=== PATIENT | male | born 1955 | race Caucasian/White ===

== ENCOUNTER 2023-01-11 09:45 | Outpatient (CLI) | payer MEDICARE, OTHER, SELFPAY ==
--- NOTE | 2023-01-11 08:45 | DI.RAD_ITS ---
Exam(s) XR PELVIS AP EXAM: XR PELVIS AP CLINICAL HISTORY: hip pain. TECHNIQUE: 2D digital imaging was performed. COMPARISON: No exams were available for comparison FINDINGS: Single view. No evidence of pelvic nor hip fracture. There are advanced osteoarthritic degenerative changes in th e right hip and milder degenerative changes in the left hip. Right hip exhibits [id number] narrowi ng of the superior aspect of the joint, subarticular degenerative cysts and small osteophytes. Also some dystrophic calcification in the soft tissues above and below the hip joint. IMPRESSION: Advanced osteoarthritic degenerative changes in the right hip. DATA REPOSITORY: RADIATION DOSE DELIVERED:
== END 2023-01-11 09:46 | disposition home or self-care (01) ==
LOC: DIORS 09:46
PROVIDERS: PCP Family Medicine; Referring Provider Family Medicine; Visit Provider Student in an Organized Health Care Education/Training Program
DX: M25.559 Pain in unspecified hip (principal); M16.11 Unilateral primary osteoarthritis, right hip
CPT/HCPCS: 99203; 72170

== ENCOUNTER → 2023-02-04 13:37 | Outpatient (BNVA) | payer MEDICARE, OTHER, SELFPAY | PROVIDERS: PCP Family Medicine; Referring Provider Family Medicine ==

== ENCOUNTER 2023-02-04 15:01 | Outpatient (CLI) | payer MEDICARE, OTHER, SELFPAY ==
[2023-02-04 19:04] LABS: HCT 45.2 % (40.0-50.0); HGB 14.7 g/dL (13.5-17.5); MCH 30.3 pg (27.0-33.0); MCHC 32.5 % (32.0-36.0); MCV 93 fL (80-95); RBC 4.85 10^6/uL (4.36-5.78); RDW 15.1 % (11.8-14.1); RDW-SD 52.3 fL; WBC 8.18 10^3/uL (4.4-10.8)
== END 2023-02-04 15:02 | disposition home or self-care (01) ==
LOC: LBO 15:02
PROVIDERS: PCP Family Medicine; Visit Provider Student in an Organized Health Care Education/Training Program
DX: M16.11 Unilateral primary osteoarthritis, right hip (principal); M25.551 Pain in right hip; Z01.818 Encounter for other preprocedural examination; Z01.812 Encounter for preprocedural laboratory examination
CPT/HCPCS: 85027

== ENCOUNTER → 2023-02-09 07:55 | Outpatient (BNVA) | payer MEDICARE, OTHER, SELFPAY | PROVIDERS: PCP Family Medicine; Referring Provider Family Medicine; Visit Provider Student in an Organized Health Care Education/Training Program ==

== ENCOUNTER 2023-02-10 08:04 | Day surgery (SDC) | payer MEDICARE, OTHER, SELFPAY ==
[2023-02-10] VITALS (10 sets, daily range): BP systolic 81–142; BP diastolic 43–81; PULSE 69–81; RESP 14–20; TEMP 36.1–36.5; O2SAT 92–99; BMI 30.7
--- NOTE | 2023-02-10 07:16 | ANES.PREOP_ITS ---
General Info Date of Service Date Performed: 02/10/23 Height: 5 ft 6 in Weight: 86.183 kg Body Mass Index (BMI): 30.7 Surgical Procedure: Operation Date: 02/10/23 10:50 Proposed Procedure Side Surgeon p Hip Total Hip Anterior, ACTIS Right Edilberto Bee MD Meds Allergies and Home Medications Allergies Allergy/AdvReac Type Severity Reaction Status Date / Time atorvastatin Allergy Verified 02/10/23 08:34 Tree and Grass Pollens Allergy Uncoded 02/10/23 08:34 Home Medication Medication Instructions Recorded brimonidine 0.2 % eye drops 1 drp ophthalmic (eye) BID 12/02/22 diphenhydramine HCl 25 mg capsule 25 mg PO QHS PRN 12/02/22 (Benadryl) dorzolamide 22.3 mg-timolol 6.8 1 drp ophthalmic (eye) BID 12/02/22 mg/mL eye drops dulaglutide 3 mg/0.5 mL 3 mg subcut QWEEK 12/02/22 subcutaneous pen injector (Trulicity) empagliflozin 25 mg tablet 25 mg PO DAILY 12/02/22 (Jardiance) gabapentin 800 mg tablet 800 mg PO Q6H 12/02/22 insulin degludec 200 unit/mL (3 60 unit subcut DAILY 12/02/22 mL) subcutaneous pen (Tresiba FlexTouch U-200 insulin) latanoprost 0.005 % eye drops 1 drp ophthalmic (eye) DAILY 12/02/22 losartan 25 mg tablet 25 mg PO DAILY 12/02/22 tadalafil 20 mg tablet 20 mg PO DAILY PRN 12/02/22 timolol maleate 0.25 % eye drops 1 drp ophthalmic (eye) BID 12/02/22 metformin 1,000 mg tablet 1,000 mg PO BID 12/22/22 acetaminophen 500 mg tablet 1,000 mg PO TID #90 tabs 02/10/23 aspirin 81 mg tablet,delayed 81 mg PO BID #60 tabs 02/10/23 release celecoxib 200 mg capsule 200 mg PO BID #60 caps 02/10/23 dexamethasone 4 mg tablet 4 mg PO DAILY #2 tabs 02/10/23 oxycodone 5 mg tablet 5 mg PO Q4H PRN pain #20 tabs 02/10/23 pantoprazole 40 mg tablet,delayed 40 mg PO DAILY #30 tabs 02/10/23 release Current Visit Medications: Current Medications Generic Name Dose Route Start Last Admin Trade Name Frekymberly PRN Reason Stop Dose Admin Acetaminophen 1,000 mg 02/10/23 06:00 Acetaminophen 500 Mg Tab PO 02/10/23 16:00 PREOP MEME Celecoxib 400 mg 02/10/23 06:00 Celecoxib 200 Mg Cap PO 02/10/23 16:00 PREOP MEME Tranexamic Acid 1,000 mg/ 60 mls @ 360 mls/hr 02/10/23 06:00 Sodium Chloride IV 02/10/23 16:00 PREOP MEME Ringer's Solution 1,000 mls @ 80 mls/hr 02/10/23 06:00 IV 03/11/23 23:59 INFUSION [facility] IV Miscellaneous Supplies 1 each 02/10/23 06:00 Iv Access IV 03/11/23 23:59 DIRECTED MEME Sodium Chloride 0 ml 02/10/23 06:00 Normal Saline Flush 10 Ml Syr IV 03/11/23 23:59 PRN PRN Sodium Chloride 0 ml 02/10/23 06:00 Normal Saline 10 Ml Vial IJ 03/11/23 23:59 DIRECTED PRN Sterile Water 0 ml 02/10/23 06:00 Water,Injection,Sterile 10 Ml Vial IJ 03/11/23 23:59 DIRECTED PRN PFSH Active Problems Active Problems: Problem Status Onset Code Primary osteoarthritis of right hip M16.11 Type 2 diabetes mellitus E11.9 Restless leg G25.81 Medical History Medical History (Updated 02/10/23 @ 08:47 by Jasmin Davis) Abnormal auditory perception of both ears (02/07/18) Bronchitis Diverticulitis Epistaxis (02/07/18) Right-sided cauterization 01/25/2023 Glaucoma Hypercholesterolemia Knee pain Neuropathy Obesity WILLY (obstructive sleep apnea) wears CPAP Pharyngitis Sensorineural hearing loss Shingles pt. denies Tinnitus Surgical History Surgical History History of laminectomy DOS 10/29/20 History of nasal cauterization Hx of colonoscopy Hx of hernia repair Hx of knee surgery Left TKA Tobacco Smoking/Tobacco Use Status: Former Tobacco Use Alcohol Alcohol Intake: current Alcohol intake frequency: holidays/special occasions only Substance Use Substance use: Never Substance use type: does not use Vital Signs and Lab Results Vital Signs Most Recent Vital Signs in EMR: Temp Pulse Resp BP Pulse Ox 36.1 C L 81 20 142/80 H 97 02/10/23 08:58 02/10/23 08:58 02/10/23 08:58 02/10/23 08:58 02/10/23 08:58 Lab Results Blood Type / Crossmatch: No Data to Display Complete Blood Count: White Blood Count 8.18 10^3/uL (4.4-10.8) 02/04/23 15:10 Red Blood Count 4.85 10^6/uL (4.36-5.78) 02/04/23 15:10 Hemoglobin 14.7 g/dL (13.5-17.5) 02/04/23 15:10 Hematocrit 45.2 % (40.0-50.0) 02/04/23 15:10 Platelet Count 10^3/uL (130-400) 02/04/23 15:10 Complete Metabolic Panel: Hemoglobin A1c 7.1 % (4.5-5.7) H 02/04/23 13:55 Liver Function Panel: No Data to Display Coagulation Panel: No Data to Display Cardiac Panel: No Data to Display Arterial Blood Gas: No Data to Display Venous Blood Gas: No Data to Display Pancreas Panel: No Data to Display Thyroid Panel: No Data to Display Infectious Disease: No Data to Display Blood Cultures: No Data to Display Toxicology Panel: No Data to Display Anesthesia Assessment and Plan Anesthesia History Personal History: No History of Anesthesia Complications Family History: No Family History of Anesthesia Complications Exercise Tolerance Exercise Tolerance: Metabolic Equivalents>4 Cardiac & Pulmonary Exam Cardiac Exam: Normal S1/S2 Heart Sounds Pulmonary Exam: Clear Bilateral Breath Sounds Implantable Cardiac Device Does patient have a Pacemaker or an ICD?: No Airway Exam Known Difficult Airway: No Mallampati Class: 4 Mouth Opening: Normal (> 3cm) Thyromental Distance: Less than 3 cm Neck Range of Motion: Limited ROM Neck Circumference: Normal Teeth Condition: Generalized Poor Dentition and Loose or Chipped ASA Classification ASA Score: ASA 3 Emergency Case?: No NPO Status NPO Status: NPO Clears >2 hours, Solids >8 hours Anesthesia Plan Resuscitation Status: Full Code Anesthesia Technique: Spinal Anesthesia Airway Planned: Natural Airway Monitors Used: Standard Monitors Preoperative Comments:: 67 yo male for HEBER. Sig PMHx: HTN (losartan), epistaxis (right, was cauterized), WILLY used CPAP), RLS, DM2 (7.1 A1c 02/04/23, Trulicity (last dose 02/03/23), jardance, degludec, metformin), neuropathy, s/p lami 2020, former smoker, occ etOH. Previous Anes: - [facility], Mac 3 grade IIb, two hand mask with OPA. Discussed plan and potential difficulty of spinal given back surgery, will dewey with US. Stated will use US, make a reasonable attempt get the spinal but with a low threshold of converting to GAETT. States that he still fells full, and feels full for a long time after meals. We discussed the risk of aspiration with sedation and that IF the spinal is successful that he would be lightly sedated, but more awake so he can protect his airway. He understands and agrees to proceed with attempts at spinal and GA as a back up plan.
[2023-02-10] MEDS: Lactated Ringers 1,000 ML 80 ML IV (09:00)
[2023-02-10] MEDS: Acetaminophen 500 MG TAB 1000 MG PO (09:06)
[2023-02-10] MEDS: Celecoxib 200 MG CAP 400 MG PO (09:06)
[2023-02-10] MEDS: ceFAZolin 2 GM/50 ML BAG IVPB (10:50)
--- NOTE | 2023-02-10 12:10 | DI.RAD_ITS ---
Exam(s) XR HIP RT IN OR EXAM: XR HIP RT IN OR CLINICAL HISTORY: RIGHT HIP OA TECHNIQUE: 2D and realtime digital imaging was performed. CONTRAST MATERIAL: Refer to procedure report. COMPARISON: CR XR PELVIS AP from 01/11/2023 FINDINGS: Fluoroscopy was provided for Dr. Bee during the performance of a right total hip replacement. Please refer to the procedure report for complete details. Ka,r=5.37 mGy IMPRESSION: RADIATION DOSE DELIVERED:
[2023-02-10] MEDS: HYDROmorphone 2 MG/ML SYR IVP ×2 (12:55→13:05)
[2023-02-10] MEDS: Normal Saline 10 ML VIAL IJ (12:55)
--- NOTE | 2023-02-10 12:58 | W.ANESPOSTOP ---
Postoperative Evaluation Date, Time and Location Date Performed: 02/10/23 Time Performed: 12:58 Patient Location: PACU Vital Signs Most Recent Imported Vital Signs: Most Recent Vital Signs Temp Pulse Resp BP Pulse Ox 36.3 C L 72 16 81/43 L 92 02/10/23 12:32 02/10/23 12:32 02/10/23 12:32 02/10/23 12:32 02/10/23 12:32 Pain Score Most Recent Pain Score: Most Recent Pain Score Pain Level 0 02/10/23 12:32 Assessment Mental Status: Awake (Alert & Oriented to Patient Baseline) Airway and Respiratory Function: Patent airway with normal (patient baseline) respiratory exam Cardiovascular Function: Hemodynamically Stable Hydration Status: Adequately Hydrated Nausea & Vomiting: No Nausea or Vomiting Pain: Pain is tolerable per patient Peripheral Nerve Block: Patient did not receive a nerve block
--- NOTE | 2023-02-10 13:36 | PDOC.DSDIS_ITS ---
Date of service: 02/10/23 Time of Service: 13:36 Discharge Plan Disposition Patient Disposition: Home Condition: Good Discharge Details Reason For Visit: R THR Attending Provider: Edilberto Bee Primary Care Provider: Tam Bustos [place] Meds and New Rx's Prescriptions: New celecoxib 200 mg capsule 200 mg PO BID Qty: 60 0RF aspirin 81 mg tablet,delayed release (DR/EC) 81 mg PO BID Qty: 60 0RF acetaminophen 500 mg tablet 1,000 mg PO TID Qty: 90 3RF pantoprazole 40 mg tablet,delayed release (DR/EC) 40 mg PO DAILY Qty: 30 0RF dexamethasone 4 mg tablet 4 mg PO DAILY Qty: 2 0RF oxycodone 5 mg tablet 5 mg PO Q4H MDD 6 tabs PRN (Reason: pain) Qty: 20 0RF Continued diphenhydramine HCl [Benadryl] 25 mg capsule 25 mg PO QHS PRN brimonidine 0.2 % drops 1 drp ophthalmic (eye) BID dorzolamide-timolol 22.3-6.8 mg/mL drops 1 drp ophthalmic (eye) BID gabapentin 800 mg tablet 800 mg PO Q6H Jardiance 25 mg tablet 25 mg PO DAILY latanoprost 0.005 % drops 1 drp ophthalmic (eye) DAILY losartan 25 mg tablet 25 mg PO DAILY tadalafil 20 mg tablet 20 mg PO DAILY PRN Rx Instructions: administer approximately 30min before sexual activity; do not use more than 1 dose per 24hrs timolol maleate 0.25 % drops 1 drp ophthalmic (eye) BID insulin degludec [Tresiba FlexTouch U-200] 200 unit/mL (3 mL) insulin pen 60 unit subcut DAILY Trulicity 3 mg/0.5 mL pen injector 3 mg subcut QWEEK metformin 1,000 mg tablet 1,000 mg PO BID Discontinued acetaminophen 325 mg capsule 650 mg PO Q4H PRN aspirin [Adult Aspirin Regimen] 81 mg tablet,delayed release (DR/EC) 81 mg PO DAILY oxycodone-acetaminophen 5-325 mg tablet 1 tab PO Q8H PRN Discharge Instructions Additional Instructions: Total Hip Discharge Instructions Activity: The most important activity is to walk. You should try to take short walks a few times a day. You have no restrictions on movement or positioning, but do not try to force what you do. You will find some stiffness and weakness with hip flexion (lifting your knee). Do not try to strengthen this too early, continue to practice walking and stairs and this will come. - Outpatient physical therapy can be helpful to help return you to a normal gait and improve your flexibility and strength. This can start around 2 weeks. For some patients, it?s not necessary. Usually this is determined at the time of discharge or at the first post-operative visit. - You should wear the JOELLE hose on both legs for 2 weeks. Dressing: Keep the surgical dressing in place for at least one week. After the first week it may be removed and replace with light gauze and tape or nothing. It may get wet after 3 days but avoid soaking the dressing. If it gets wet, just lightly pat dry. It is important to always keep some gauze between skin folds, especially when you are sitting. Spend some time with the wound exposed when you are lying flat as the incision does wrinkle onto itself. Medications: - You should take Tylenol and an anti-inflammatory Celebrex as your primary pain control medications. If the Celebrex is too expensive or not covered, please call the office for another alternative (Advil/Ibuprofen or Naproxen/Aleve). - You have been prescribed a stronger pain medication Oxycodone for breakthrough pain, take as needed as prescribed. - You have also been prescribed a stomach acid reduction agent Pantoprozole to help reduce stomach acid and reflux. - You have also been prescribed Decadron to help with post-operative nausea and pain. You will take this for two days starting tomorrow. - You will be taking Aspirin 81mg twice a day for DVT prevention unless instructed otherwise. - If you have constipation you should take Colace or Miralax (both [id number]). It takes most people 3-4 days to have a bowel movement. Follow-up: 2 weeks If you have any acute concerns or questions, please do not hesitate to contact the office at [phone]. You may contact Dr. Bee with any questions after hours through the hospital at [phone] or on his cell phone at [phone]. Referrals: Edilberto Bee MD [ [facility] STAFF PHYSICIAN] - Equipment/Supplies: Walker Activity:: Activity as Tolerated Shower/Bathe:: 72 hours Diet:: As Tolerated Discharge Orders Discharge Orders: Discharge Order (Routine); Ordered 02/10/23 Ordered By: Edilberto Bee DS: Diagnosis Discharge Diagnosis (1) Primary osteoarthritis of right hip: Status: Chronic
--- NOTE | 2023-02-10 14:06 | W.PM.OP ---
Date of service: 02/10/23 Time of Service: 14:06 Operative Note Operative Note DATE OF PROCEDURE: 02/10/23 PRE-OP DIAGNOSIS: Right Hip Osteoarthritis POST-OP DIAGNOSIS: same PROCEDURE: Right Anterior Total Hip Arthroplasty with Intraoperative Navigation SURGEON: Edilberto Bee SOIL SPECIALIST: Neftaly Garcia ANESTHESIA TYPE: Spinal Refer to Anesthesia Record ESTIMATED BLOOD LOSS: 200 PATHOLOGY: none sent TOURNIQUET TIME: 0 COMPLICATIONS: None Patient was transported to: PACU Patient's condition: stable Implants: 1. Depuy [place] Acetabular Component, 54mm 2. Depuy Acetabular Liner, [id number] 3. Depuy Actis Standard Collared Femoral Stem, Size 5 4. Depuy Altrx Ceramic Femoral Head, Size 36+1.5mm Indications: I have seen Lamin in clinic for symptoms of hip arthritis, confirmed with radiographic findings. Lamin has exhausted nonoperative methods and was having significant limitations in daily function and desired better function and less pain. I discussed the technical details of a hip replacement. I explained the risks of the procedure to include, but not limited to, bleeding, infection, pain, stiffness, fracture, damage to nerves and vessels, damage to muscles and tendons, loosening, instability, leg length inequality, need for repeat procedure, blood clot and cardiopulmonary demise. Despite these risks, Lamin elected to proceed. Findings: There was significant signs of arthritis throughout the hip. Procedure Description: Lamin was greeted in the preoperative holding area where the correct side was identified and marked. The consent was reviewed with the patient and signed. The history and physical was updated. All questions were answered. He was taken back to the operating room. A spinal anesthestic was then administered. The feet were wrapped with cast padding and Coban and then placed into the boot liners and then into the boots. Care was taken to protect the skin and make sure the heels were fully down and the boots were stable. The patient was then positioned onto the HANA table. Both legs were held in a neutral position. SCDs were applied. The patient was then slid down onto a peroneal post. Prophylactic antibiotics in the form of Cefazolin were administered. 1g of Tranxemic Acid was given intravenously within 30 minutes of incision. The right leg was then prepped with Chloraprep and draped in a standard fashion. A second prep with Chloraprep was performed prior to placement of a shower-curtain type drape with Iodine impregnated skin protection. A timeout to confirm correct identity, side and site, procedure, allergies, anesthesia, and medical concerns was performed. An obliquely oriented incision was made starting lateral to the ASIS and running distal over the Tensor Fascia Tiffany (TFL) muscle belly toward the fibular head, approximately 10cm. The skin and soft tissue was dissected sharply, through Olga?s fascia, and to the fascia of the TFL. With the fascia and superior border of the IT band identified, the fascia was incised with a new knife just above any perforators from the IT band. The TFL muscle belly was bluntly dissected away from the fascia and moved laterally. The fat between TFL and rectus was identified to ensure the dissection was not within the TFL. Blunt dissection created space between abductors and the capsule and retractor was placed over the lateral femoral neck. The fibers of the rectus femoris tendon were identified and these were freed from the anterior capsule. A second cobra retractor was placed around the medial femoral neck. The TFL was further retracted laterally to show the deep fascia. Careful dissection through this layer identified three main crossing vessels of the lateral femoral circumflex. These were cauterized in multiple locations and then cut without any noticeable bleeding. The TFL was further released bluntly from the deep fascia to expose anterior hip capsule and fat The Monico orthopaedic retractor was then placed beneath the TFL and against sartorius and medial soft tissues to protect and retract the soft tissues. A T-capsulotomy was then performed starting at the superior lateral acetabulum and moving distally to the intertrochanteric ridge. These capsular flaps were tagged with a No. 1 Ethibond and elevated from within. The capsular flaps were released to the shoulder of the lateral neck and to the lesser trochanter to give excellent visualization of the proximal femur. A neck osteotomy was performed using an oscillating saw based on preoperative templates. This cut started in the shoulder and of the lateral neck and exited medially. The saw was at all times directed medially to avoid injury to the greater trochanter. Gross traction was applied to the leg and the osteotomy opened. The femoral head was removed with a corkscrew, making sure to protect the TFL on its exit. Traction was released after head removal. This was measured on the back table to determine the starting reamer size. Portions of the rectus obscuring visualization were minimally elevated off the superior acetabulum. An anterior retractor was placed over the anterior wall between capsule and labrum and attached to the Gripper retraction system. The femur was rotated to 90 degrees and medial capsule was fully released until the lesser trochanter was palpable and visible; the femur was returned to 30 degrees. A posterior retractor was placed similarly between capsule and labrum. This provided excellent visualization. The contents of the cotyloid fossa were removed with electrocautery and the labrum was removed with a knife. There was a notable floor osteophyte. There was significant chondromalacia of the superior acetabulum. Acetabular reaming began with a 48mm reamer. This first reaming was directed anterior to posterior and medial to get down to the true floor. This was inspected and reamed until the true floor was reached. The anterior retractor was then released and entry and exit was provided by traction on the capsular flaps. I then reamed sequentially up to a 54mm reamer where good fit was obtained. The larger reamers were oriented based on anatomical reference of the anterior and lateral gonzalez to ensure proper abduction and anteversion. Positioning and size was confirmed with the fluoroscopy. A 54mm Depuy [place] acetabular component was selected. The acetabulum was reamed around the periphery with the selected acetabular size to prevent a rim fit. The deep tissues were irrigated. The acetabular component was then impacted in a position of about 40-45 degrees of abduction and 15-20 degrees of anteversion, using the patient?s anatomy as the ultimate landmark. Fluoroscopy was used to confirm this. There was excellent environmental program manager of the acetabular component and the inserting handle was removed. The acetabular liner, Depuy [id number] polyethylene liner, was inserted and lined up with the tines of the acetabular component. There was no soft tissue interposition. The liner was then impacted into position and confirmed to be well-seated. A portion of the michele-articular cocktail was then injected around the acetabulum into the capsule and periosteum. This cocktail consisted of 123mg of Ropivacaine, 0.25mg of Epinephrine, 0.04mg of Clonidine, and 15mg of Ketorolac, diluted to 50cc. The leg was rotated to 120 degrees. Any remaining medial capsule was released until the lesser trochanter was easily palpable. A retractor was placed medially. The lateral capsule was further released into the shoulder to allow access to the greater trochanter. A Torres retractor was placed over the greater trochanter which allowed the trochanter to flip in front of the capsule for excellent exposure. The leg was brought down into maximal extension and 20 degrees of adduction while ensuring there was no impingement on the acetabulum. Any remnant capsule within the trochanter was released. Piriformis and obturator externis were identified and protected. There was excellent access to the proximal femur. The lateral neck remnant was removed with a rongeur. A blunt canal probe was used to identify the canal and trajectory for later broaching. A box osteotome initiated the broach course. A small curved rasp and a curved curette were used to work laterally. Broaching then began with a starter Actis broach. This was inserted manually around the trochanter and into the canal before mallet blows. The broach was seated to a few millimeters below the cut level based on the neck cut and the preoperative template. Sequential broaching was continued with the Flomio pneumatic broaching device as well as by hand until a tight fit was obtained with good rotational control of the femur. A trial standard neck was inserted along with a +5 trial head. The leg was brought out of extension and adduction and then reduced with traction and internal rotation. The leg was stable anteriorly in a position of 30 degrees of extension and 90 degrees of external rotation. Fluoroscopy was used to ensure there was no fracture and the stem was seated well. Leg lengths were checked with an AP pelvis and pelvic reference points. Orange G[employer] navigation system was used to confirm appropriate positioning and leg length and offset. Once content with the desired offset and leg lengths, the leg was brought back into extension, external rotation and adduction. The periosteum and surrounding tissue was injected with remaining portion of the michele-articular cocktail. The proximal femur was irrigated as well as the deep tissues. The SKINNYpriceuy Zventsis standard collared stem, size 5, was then manually inserted into the proximal femur making sure to control rotation. It was then malleted into position with light blows, giving breaks to allow bone expansion and decrease risk of fracture. The selected Depuy Altrx Ceramic Head, size 36+1.5mm, was then placed onto the clean and dry trunnion and secured with impaction onto the tapered fit. The leg was brought back out of extension and adduction and reduced with traction and internal rotation. Stability was confirmed with no shuck at 90 degrees of external rotation and 30 degrees of extension. No impingement through range of motion arc. Final x-ray images were obtained with fluoroscopy to confirm adequate positioning and no intraoperative fracture. The deep tissues were thoroughly irrigated with Surgiphor, betadine solution. This was allowed to sit in the wound for 3 minutes before being thoroughly irrigated out with normal saline. The capsule was then reapproximated with the previously placed Ethibond sutures. The TFL fascia was finally closed with a No. 2 Stratafix, barbed suture. Deep tissues were then reapproximated with 0 Vicryl and a running 2-0 Vicryl. The skin was closed with a running 4-0 Monocryl in a subcuticular fashion. This was reinforced with skin glue. A Mepilex silver dressing was applied. At the end of the case, all counts were correct. Lamin was transferred to the hospital bed without difficulty and suffering no apparent complication. Lamin has a good prognosis. Physical therapy will start today and without restrictions, weight-bearing as tolerated. Aspirin 81mg BID will be used for DVT prophylaxis.
[2023-02-10] MEDS: oxyCODONE 5 MG TAB PO (14:36)
--- NOTE | 2023-02-10 15:15 | IN_ITS ---
Date of service: 02/10/23 Time of Service: 14:40 PT Notes Visit Reasons: R THR Physical Therapy Day Surgery Initial Evaluation Date: 02/10/2023 Referring Doctor: CARLINE Polanco PT Orders: PT CONSULT: S/P Ortho surgery Precautions: WBAT on right LE with AD Patient Profile/Admitting Diagnosis: Keo is a 67-year-old male with primary unilateral osteoarthritis of the right hip and is status post right total hip arthroplasty on postoperative day 0. PMHX: Medical History?(Updated 02/04/23 @ 14:32 by Mariola Avalos) Abnormal auditory perception of both ears (02/07/18) Bronchitis Diverticulitis Epistaxis (02/07/18) Right-sided cauterization 01/25/2023 Glaucoma Hypercholesterolemia Knee pain Neuropathy Obesity WILLY (obstructive sleep apnea) wears CPAP Pharyngitis Sensorineural hearing loss Shingles Tinnitus Surgical History?(Updated 02/04/23 @ 14:28 by Mariola Avalos) History of laminectomy DOS 10/29/20 History of nasal cauterization Hx of hernia repair Hx of knee surgery Left TKA Social History/Home Situation: Lives with in a private home with 2 steps to enter with rails on both sides. Drives a school van part-time. Was in the [employer] for 20 years previously. Equipment Owned/DME: None Subjective: Agreeable to PT consult. Reports 5/10 pain in the right hip that did not limit mobility performance for this session. Denies headache, chest pain, and lightheadedness throughout session. Objective: General Observation: Resting in bed. Mepilex Ag over surgical incision. TEDs to be legs. Mental Status: Alert and oriented x4 Pain: As above ROM: Right Lower Extremity: Hip flexion WFL. Hip abduction WFL. Knee flexion WFL. Ankle dorsiflexion WFL. Ankle plantarflexion WFL. Left Lower Extremity: Hip flexion WFL. Hip abduction WFL. Knee flexion WFL. Ankle dorsiflexion WFL. Ankle plantarflexion WFL. Strength: Right Lower Extremity: Hip flexors 4/5. Hip abductors 4/5. Knee flexors 5/5. Knee extensors 4/5. Ankle dorsiflexors 5/5. Ankle plantarflexors 5/5. Left Lower Extremity:Hip flexors 5/5. Hip abductors 5/5. Knee flexors 5/5. Knee extensors 5/5. Ankle dorsiflexors 5/5. Ankle plantarflexors 5/5. Sensation: Intact as to pain and light pressure in bilateral lower extremities Bed Mobility/Transfers: Reviewed safe and correct technique in performing movement sequence for activities below: Supine to sit supervision Sit to stand standby assist with FWW Stand to sit standby assist with FWW Bed to chair standby assist with FWW Gait: Tolerated 150 feet of level surface ambulation using front wheeled walker with step through gait pattern requiring only standby assist. Reviewed with patient proper AD management, posture, and safe gait pattern for this activity. Stairs: Ascended and descended 6 x 4 inch steps and 4 x 6 inch steps holding onto bilateral rails with step to gait pattern requiring only standby assist. Provided guidance and instruction on safe stair negotiation technique, hand placement, and correct gait pattern to minimize pain. Balance: Static Sitting: Normal Dynamic Sitting: Normal Static Standing: Fair Dynamic Standing: Fair Special Tests: Mobility Limitations Standardized Measure [facility] 6 clicks Basic Mobility Inpatient Short Form: Raw Score: 24 CMS Score: 0% deficit Informed Consent/Education: Patient instructed in purpose of PT consult. Packet containing HEBER exercise protocol has been given to patient. Education and training on initial set of exercises that can be done at home have been completed with patient. Trained patient with correct performance of exercises below to maximize motor control, joint flexibility, soft tissue extensibility of the R hip musculature to facilitate return to independent functional mobility performance. Access Code: [email or web address] URL: [email or web address] Date: 02/10/2023 Prepared by: Nathaly Mosley Exercises - Gluteal Sets - 1 x daily - 7 x weekly - 1 sets - 10 reps - 5 hold - Supine Heel Slide - 1 x daily - 7 x weekly - 1 sets - 10 reps - 5 hold - Supine Ankle Pumps - 1 x daily - 7 x weekly - 1 sets - 10 reps - 5 hold - Seated March - 1 x daily - 7 x weekly - 1 sets - 10 reps - 5 hold - Seated Long Arc Quad - 1 x daily - 7 x weekly - 1 sets - 10 reps - 5 hold Assessment: Patient requires the use of a front wheel walker for all mobility ADL performance to maximize independence and reduce fall risk. Patient presents with clinical signs and symptoms consistent with current/admitting diagnoses that have resulted to mobility limitations, gait instability, generalized weakness, and impairment of motor control as demonstrated by the following impairment level findings: 1. Decreased strength to R hip major muscle groups 2. Impaired standing balance Impairments are contributing to the following functional limitations: 1. Inability to safely ambulate without assistive device 2. Increase completion time for mobility ADL performance 3. Increased fall risk Patient is assessed as a 00274 moderate complexity based on the following: History: 67-year-old male with impairment level findings, functional limitations, and past medical history as indicated above Examination: Demonstrable impairment in strength, balance, and mobility level with underlying impairments and functional limitations as documented above Presentation: Evolving Decision Makin moderate complexity Goals: N/A. PT evaluation and 1-2 treatment sessions only for functional mobility training using recommended AD and for HEP instruction. Plan of Care/Treatment Plan: N/A. PT evaluation and 1-2 treatment session only for functional mobility training using recommended AD and for HEP instruction. DISCHARGE RECOMMENDATIONS: Home when medically cleared by orthopedic surgeon. Recommend outpatient PT services in order to optimize functional mobility outcomes and facilitate return to independent community ambulation without an assistive device. TREATMENT CODE/TIME: 29400 x 26 minutes beginning at 14:40 PM. Thank you for the opportunity to participate in the care of this patient. Nathaly Mosley PT, DPT, CLT [facility] [place], [place]
== END 2023-02-10 16:35 | disposition home or self-care (01) ==
PROVIDERS: PCP Family Medicine; Visit Provider Student in an Organized Health Care Education/Training Program
PROC: (CPT 27130; principal; 2023-02-10 10:30)
DX: M16.11 Unilateral primary osteoarthritis, right hip (principal); G47.33 Obstructive sleep apnea (adult) (pediatric); E66.9 Obesity, unspecified; E78.00 Pure hypercholesterolemia, unspecified
CPT/HCPCS: 20985; 27130; C1776; 97162; 73501; J0690; J1100; J1170; J2250; J2405

== ENCOUNTER 2023-02-25 14:07 | Outpatient (CLI) | payer MEDICARE, OTHER, SELFPAY ==
--- NOTE | 2023-02-25 13:10 | DI.RAD_ITS ---
Exam(s) XR HIP RT COMPLETE AP PELVIS EXAM: XR HIP RT COMPLETE AP PELVIS CLINICAL HISTORY: 1ST POST OP S/P R HEBER. TECHNIQUE: 2D digital imaging was performed. Two views COMPARISON: XA XR HIP RT IN OR from 02/10/2023 FINDINGS: BONES: No acute fracture is present. No bony destructive lesion is seen. An a right hip prosthesis is noted. There are no suspicious surrounding bony lucencies. JOINTS: No dislocation present. Mild degenerative changes of the right hip. SOFT TISSUE: Calcification in the medial upper right thigh. IMPRESSION: Satisfactory appearance of the right hip and prosthesis. DATA REPOSITORY: RADIATION DOSE DELIVERED:
== END 2023-02-25 14:08 | disposition home or self-care (01) ==
LOC: DIORS 14:07
PROVIDERS: PCP Family Medicine
DX: Z96.641 Presence of right artificial hip joint (principal); Z47.1 Aftercare following joint replacement surgery
CPT/HCPCS: 73502

== ENCOUNTER → 2023-03-29 14:44 | Outpatient (BNVA) | payer MEDICARE, OTHER, SELFPAY | PROVIDERS: PCP Family Medicine; Referring Provider Family Medicine; Visit Provider Student in an Organized Health Care Education/Training Program | DX: Z47.1 Aftercare following joint replacement surgery (principal); Z96.641 Presence of right artificial hip joint ==

== ENCOUNTER 2024-11-10 09:40 | Day surgery (SDC) | payer OTHER, SELFPAY ==
[2024-11-10 10:22] VITALS: BP 119/77; PULSE 63; RESP 16; TEMP 36.2; O2SAT 98
[2024-11-10] MEDS: Tropicam./Phenyleph. (1/2.5%) 5 ML BTL OS ×3 (10:25→10:53)
--- NOTE | 2024-11-10 10:49 | ANES.PREOP_ITS ---
General Info Date of Service Date Performed: 11/10/24 Height: 5 ft 4 in Weight: 82.4 kg Body Mass Index (BMI): 31.1 Surgical Procedure: Operation Date: 11/10/24 12:40 Proposed Procedure Side Surgeon p Cataract Extraction with IOL Implant Left Adonay Ortez MD Meds Allergies and Home Medications Allergies Allergy/AdvReac Type Severity Reaction Status Date / Time atorvastatin Allergy Other (See Verified 11/10/24 10:28 Comment) Home Medication ?Medication ?Instructions ?Recorded brimonidine 0.2 % eye drops 1 drp ophthalmic (eye) BID 12/02/22 diphenhydramine HCl 25 mg capsule 25 mg PO QHS PRN 12/02/22 (Benadryl) dorzolamide 22.3 mg-timolol 6.8 1 drp ophthalmic (eye) BID 12/02/22 mg/mL eye drops dulaglutide 3 mg/0.5 mL 3 mg subcut QWEEK 12/02/22 subcutaneous pen injector (Trulicity) empagliflozin 25 mg tablet 25 mg PO DAILY 12/02/22 (Jardiance) insulin degludec 200 unit/mL (3 60 unit subcut DAILY 12/02/22 mL) subcutaneous pen (Tresiba FlexTouch U-200 insulin) latanoprost 0.005 % eye drops 1 drp ophthalmic (eye) DAILY 12/02/22 losartan 25 mg tablet 25 mg PO DAILY 12/02/22 tadalafil 20 mg tablet 20 mg PO DAILY PRN 12/02/22 metformin 1,000 mg tablet 1,000 mg PO BID 12/22/22 aspirin 81 mg tablet,delayed 81 mg PO DAILY 03/29/23 release Current Visit Medications: Current Medications Generic Name Dose Route Start Last Admin Trade Name Freq PRN Reason Stop Dose Admin Acetaminophen 1,000 mg 11/10/24 06:00 Acetaminophen 500 Mg Tab PO 12/10/24 05:59 Q4H PRN PRN Balanced Salt Solution 500 ml 11/10/24 06:00 Balanced Salt Soln.-Plus 500 Ml Bag OP 12/10/24 05:59 DIRECTED [facility] Miscellaneous Medication 0 ml 11/10/24 06:00 Prednisolone 1%, Moxifloxacin 0.5%, Bromfenac 0.09% 5.6ml Btl OS 12/10/24 05:59 DIRECTED [facility] Miscellaneous Medication 0 ml 11/10/24 06:00 11/10/24 10:30 Tropicam./Phenyleph. (1/2.5%) 5 Ml Btl OS 12/10/24 05:59 1 drp DIRECTED MEME Administration Tetracaine HCl 0 ml 11/10/24 06:00 Tetracaine 0.5% 4 Ml Btl OS 12/10/24 05:59 DIRECTED [facility] PFSH Active Problems Active Problems: Problem Status Onset Code Posterior subcapsular age-related cataract of left eye Acute H25.042 Cortical age-related cataract, left eye Acute H25.012 Primary open-angle glaucoma, left eye, moderate stage Acute H40.1122 History of total right hip replacement Acute Z96.641 Restless leg Acute G25.81 Type 2 diabetes mellitus Acute E11.9 Medical History Medical History Neuropathy Knee pain Bronchitis Shingles pt. denies Pharyngitis Sensorineural hearing loss Tinnitus WILLY (obstructive sleep apnea) wears CPAP Obesity Hypercholesterolemia Glaucoma Diverticulitis Epistaxis (02/07/18) Right-sided cauterization 01/25/2023 Abnormal auditory perception of both ears (02/07/18) Surgical History Surgical History Hx of colonoscopy Hx of hernia repair Hx of knee surgery Left TKA History of nasal cauterization History of laminectomy DOS 10/29/20 Tobacco Smoking/Tobacco Use Status: Former Tobacco Use Alcohol Alcohol Intake: current Alcohol intake frequency: holidays/special occasions only Substance Use Substance use: Never Substance use type: does not use Vital Signs and Lab Results Vital Signs Most Recent Vital Signs in EMR: Most Recent Vital Signs Temp Pulse Resp BP Pulse Ox 36.2 C L 63 16 119/77 98 11/10/24 10:22 11/10/24 10:22 11/10/24 10:22 11/10/24 10:22 11/10/24 10:22 Point of Care Results Point of Care Results: Finger Stick Blood Glucose 166 11/10/24 10:19 Lab Results Blood Type / Crossmatch: No Data to Display Complete Blood Count: No Data to Display Complete Metabolic Panel: No Data to Display Liver Function Panel: No Data to Display Coagulation Panel: No Data to Display Cardiac Panel: No Data to Display Arterial Blood Gas: No Data to Display Venous Blood Gas: No Data to Display Pancreas Panel: No Data to Display Thyroid Panel: No Data to Display Infectious Disease: No Data to Display Blood Cultures: No Data to Display Toxicology Panel: No Data to Display Anesthesia Assessment and Plan Anesthesia History Personal History: No History of Anesthesia Complications Family History: No Family History of Anesthesia Complications Exercise Tolerance Exercise Tolerance: Metabolic Equivalents>4 Pertinent Negatives Pertinent Negatives: No Symptoms of GERD, No Major Cardiovascular Symptoms or Complaints and No Major Pulmonary Symptoms or Complaints Cardiac & Pulmonary Exam Cardiac Exam: Normal S1/S2 Heart Sounds Pulmonary Exam: Clear Bilateral Breath Sounds Implantable Cardiac Device Does patient have a Pacemaker or an ICD?: No Airway Exam Known Difficult Airway: No Mallampati Class: 1 Mouth Opening: Normal (> 3cm) Thyromental Distance: Less than 3 cm Neck Range of Motion: Limited ROM Neck Circumference: Normal Teeth Condition: Generalized Poor Dentition and Loose or Chipped ASA Classification ASA Score: ASA 2 Emergency Case?: No NPO Status NPO Status: NPO Clears >2 hours, Solids >8 hours Anesthesia Plan Resuscitation Status: Full Code Anesthesia Technique: MAC Anesthesia Airway Planned: Natural Airway Monitors Used: Standard Monitors
[2024-11-10 10:50] VITALS: BMI 31.1
[2024-11-10] MEDS: Tetracaine 0.5% 4 ML BTL OS (11:40)
[2024-11-10] MEDS: Povidone-Iodine Ophth 30 ML BTL (11:41)
[2024-11-10] MEDS: Balanced Salt Soln.-PLUS 500 ML BAG OP (11:49)
[2024-11-10] MEDS: Phenylephrine/Lidocaine (15/10) MG/ML 1 ML VIAL (11:49)
[2024-11-10] MEDS: Duovisc Viscoelastic System EACH 1 EACH (11:51)
[2024-11-10] MEDS: Lidocaine 1% Pres-Free 5 ML VIAL (11:52)
[2024-11-10] MEDS: Moxifloxacin-PF 1 MG/ML VIAL (11:54)
[2024-11-10] MEDS: Prednisolone 1%, Moxifloxacin 0.5%, Bromfenac 0.09% 5.6ML BTL OS (11:54)
--- NOTE | 2024-11-10 12:15 | W.PM.DSUDISC ---
Date of service: 11/10/24 Discharge Plan Disposition Patient Disposition: Home Discharge Details Attending Provider: Adonay Ortez Primary Care Provider: Tam Bustos [place] Meds and New Rx's Prescriptions: No Action aspirin 81 mg tablet,delayed release (DR/EC) 81 mg PO DAILY diphenhydramine HCl [Benadryl] 25 mg capsule 25 mg PO QHS PRN brimonidine 0.2 % drops 1 drp ophthalmic (eye) BID dorzolamide-timolol 22.3-6.8 mg/mL drops 1 drp ophthalmic (eye) BID Jardiance 25 mg tablet 25 mg PO DAILY latanoprost 0.005 % drops 1 drp ophthalmic (eye) DAILY losartan 25 mg tablet 25 mg PO DAILY tadalafil 20 mg tablet 20 mg PO DAILY PRN Rx Instructions: administer approximately 30min before sexual activity; do not use more than 1 dose per 24hrs insulin degludec [Tresiba FlexTouch U-200] 200 unit/mL (3 mL) insulin pen 60 unit subcut DAILY Trulicity 3 mg/0.5 mL pen injector 3 mg subcut QWEEK metformin 1,000 mg tablet 1,000 mg PO BID Discharge Instructions Stand Alone Forms: DSU Post-Op CataractRosi (DSU) Discharge Orders Discharge Orders: Discharge Order (Routine); Ordered 11/10/24 Ordered By: Adonay Ortez DS: Diagnosis Discharge Diagnosis (1) Posterior subcapsular age-related cataract of left eye: Status: Resolved (2) Cortical age-related cataract, left eye: Status: Resolved (3) Primary open-angle glaucoma, left eye, moderate stage: Status: Chronic
--- NOTE | 2024-11-10 12:16 | ROE_ITS ---
Operative Note Operative Note PRE-OP DIAGNOSIS: Nuclear/posterior subcapsular cataract, left eye Primary open-angle glaucoma, moderate stage, left eye POST-OP DIAGNOSIS: same PROCEDURE: Cataract extraction using phacoemulsification with intraocular lens implant, l eft eye (77827) Goniotomy, left eye (29444) SURGEON: Adonay Ortez ANESTHESIA TYPE: Local By Surgeon and MAC Refer to Anesthesia Record PATHOLOGY: none sent COMPLICATIONS: None Patient was transported to: same day Patient's condition: stable Implants: Mekhi Clareon [id number] Indications: Progressive decreased vision due to cataract, left eye Primary open-angle glaucoma, left eye, moderate stage Procedure Description: CATARACT SURGERY OPERATIVE REPORT PREOPERATIVE DIAGNOSIS: Cortical/posterior subcapsular cataract, left eye Primary open-angle glaucoma, moderate stage, left eye POSTOPERATIVE DIAGNOSIS: Same OPERATION: Cataract extraction using phacoemulsification with posterior chamber intraocular lens implant, left eye. Goniotomy, left eye IOL: IOL Shingle Packer/Model: Mekhi Clareon [id number] IOL Power: + 17.0 diopters IOL Serial Number: [id number] Optic Diameter: 6.0mm Haptic/Overall Diameter: 13.0mm PHACO INFO: Mekhi Centurion Vision System with OZil and Active Fluidics Cumulative Dispersed Energy (CDE): 5.65 seconds SURGEON: Adonay Ortez MD, DIEUDONNE ANESTHESIA: Monitored Anesthesia Care (MAC), with local sub-tenon's anesthetic infiltration COMPLICATIONS: None SPECIMENS: None INDICATIONS FOR PROCEDURE: Patient is a 69-year-old male with history of diminished visual acuity in his left eye secondary to the development of cortical/posterior subcapsular cataract. He also has moderate stage primary open-angle glaucoma of the left eye for which he takes multiple topical medications. The option of cataract surgery was offered to the patient and he wished to proceed. In addition, the option of minimally invasive glaucoma surgery at the time of cataract surgery was offered to the patient and he wished to proceed with that as well. See office notes for detailed information. PROCEDURE: The correct surgical eye was identified and marked as the left eye and the pupil was dilated in the preoperative area using mydriatics and cycloplegics. The dilated pupil size was 6.0 mm. The patient elected to proceed without oral sedation. The patient was brought to the operating room where cardiopulmonary monitoring was instituted and surgical time-out was performed, confirming the correct operative eye and IOL power. Topical anesthesia was administered and ophthalmic povidone-iodine 5% was instilled into the conjunctival fornices. The michele-ocular area was prepped with Betadine 10% solution and draped in the usual sterile fashion for intraocular surgery, including an aperture drape. A Tegaderm transparent film dressing was cut in half and used to cover the lashes and lid margins. Care was taken to sequester the lashes and lid margins under the Tegaderm dressing. A lid speculum was placed between the lids of the operative eye and the Mekhi LuxOR Revalia operating microscope was maneuvered into position. Adrianna scissors were then used to make a conjunctival buttonhole approximately 6mm posterior to the limbus in the inferonasal quadrant. Blunt dissection was carried out to expose bare sclera, and a blunt-tipped sub-tenon?s anesthesia cannula was introduced and passed posteriorly along the globe where non- preserved plain lidocaine was injected into posterior sub-Tenon?s space. A sideport knife was used to make a paracentesis port. Intraocular phenylephrine/lidocaine was injected into the anterior chamber. The anterior chamber was then filled with viscoelastic. A keratome knife was used construct a two-plane clear corneal tunnel extending 2.0mm into clear cornea. A flap was raised on the anterior capsule and capsulorhexis forceps were used to complete a continuous curvilinear capsulorhexis of 5.0 mm. Balanced salt solution was then used to perform cortical cleaving hydrodissection and nuclear hydrodelineation until the lens could be freely rotated within the capsular bag. The lens nucleus was then disassembled and removed within the capsular bag and iris plane using phacoemulsification. Residual cortical material was removed using the irrigation/aspiration handpiece. The posterior capsule was carefully polished to remove as much residual lens epithelial cells as safely possible. The capsular bag was then inflated and the anterior chamber deepened with viscoelastic. The lens implant described above was inserted into the capsular bag using the Mekhi Autonome Injector. A Kuglen hook was used to dial the IOL into position. The anterior chamber was then slightly over-filled with viscoelastic. The microsope and the patient's head were tilted into the ideal position for viewing of the anterior chamber angle. Viscoelastic was placed on the cornea followed by a surgical gonionlens, and the anterior chamber angle landmarks were identified. The [employer] surgical goniotomy instrument was then introduced into the anterior chamber and used to penetrate the trabecular meshwork in the nasal angle as far to the left as possible. The instrument was then used to smoothly excise the trabecular meshwork in a clockwise fashion for approximately 120 degrees/ four clock hours. The microscope and the patients head were returned to the normal coaxial position. Residual viscoelastic was then removed first from posterior to the IOL, then from the anterior chamber using the I/A handpiece. The lens implant was noted to center nicely within the capsular bag. The incisions were stromally hydrated, and the anterior chamber was reformed using BSS. Then 0.5cc of moxifloxacin 1.0mg/ml were injected into the capsular bag and anterior chamber. The incisions were checked with a Weck spear and found to be secure. Several drops of ophthalmic povidone-iodine 5% were then applied to the eye followed by two drops of combination steroid/NSAID/antibiotic solution. The drapes were removed and a clear plastic protective eye shield was placed over the eye. The patient was then returned to Same Day Surgery in stable condition. Date of Procedure: 11/10/24
[2024-11-10 12:17] VITALS: BP 119/71; PULSE 60; RESP 18; TEMP 37; O2SAT 97
--- NOTE | 2024-11-10 12:34 | W.ANESPOSTOP ---
Postoperative Evaluation Date, Time and Location Date Performed: 11/10/24 Time Performed: 12:25 Patient Location: Day Surgery Unit Vital Signs Most Recent Imported Vital Signs: Most Recent Vital Signs Temp Pulse Resp BP Pulse Ox 37.0 C 60 18 119/71 97 11/10/24 12:17 11/10/24 12:17 11/10/24 12:17 11/10/24 12:17 11/10/24 12:17 Pain Score Most Recent Pain Score: Most Recent Pain Score Pain Level 0 11/10/24 12:17 Assessment Mental Status: Awake (Alert & Oriented to Patient Baseline) Airway and Respiratory Function: Patent airway with normal (patient baseline) respiratory exam Cardiovascular Function: Hemodynamically Stable Hydration Status: Adequately Hydrated Nausea & Vomiting: No Nausea or Vomiting Pain: Pt. Denies Any Pain Peripheral Nerve Block: Patient did not receive a nerve block
== END 2024-11-10 12:37 | disposition home or self-care (01) ==
PROVIDERS: PCP Family Medicine; Visit Provider Ophthalmology
PROC: (CPT 65820; principal; 2024-11-10 12:30)
DX: H25.042 Posterior subcapsular polar age-related cataract, left eye (principal); H25.012 Cortical age-related cataract, left eye; H40.1122 Primary open-angle glaucoma, left eye, moderate stage
CPT/HCPCS: 65820; 66984; 00123; V2632; J2003

== ENCOUNTER 2025-01-12 10:33 | Outpatient (CLI) | payer OTHER, SELFPAY ==
--- NOTE | 2025-01-12 08:00 | DI.RAD_ITS ---
Exam(s) XR HIP LT COMPLETE AP PELVIS EXAM: XR HIP LT COMPLETE AP PELVIS CLINICAL HISTORY: LEFT HIP PAIN. TECHNIQUE: 2D digital imaging was performed. COMPARISON: CR XR HIP RT COMPLETE AP PELVIS from 02/25/2023 FINDINGS: Two views No evidence of fractures. There has been significant progression of degenerative osteoarthritic changes in the left hip when compared to February 2023. There is now [id number] narrowing in superior aspect of the joint space. There are also osteophytes of the femoral head level. Small degenerativ e subarticular cysts are noted. Prosthesis in the opposite-right hip appears stable. IMPRESSION: Left hip advanced degenerative narrowing now evident, exhibiting significant progression when compared to images of February 2023. DATA REPOSITORY: RADIATION DOSE DELIVERED:
== END 2025-01-12 10:34 | disposition home or self-care (01) ==
LOC: DIORS 10:33
PROVIDERS: PCP Family Medicine; Visit Provider Physician Assistant
DX: M25.552 Pain in left hip (principal); M16.12 Unilateral primary osteoarthritis, left hip
CPT/HCPCS: 73502